=== PATIENT | female | born 1995 | race African-American/Black ===

== ENCOUNTER 2017-08-26 11:15 | Emergency (ER) | payer SELFPAY ==
[2017-08-26 11:30] VITALS: BP 103/65
--- NOTE | 2017-09-04 07:36 | UC ---
Leyla Anderson Nilda, scribed for Carol Aggarwal DO on 08/26/17 at 1333 . Hand/Wrist HPI - HPI Summary HPI Summary: This patient is a 21 year old F presenting to [facility] [place] accompanied by friend with a chief complaint of right index finger pain and swelling s/p getting a ring stuck on her finger last night. This morning pt woke up with swollen right index finger that turned purple. Pt states she normally puts the ring on her left index finger instead with no issues. The patient rates the pain 5/10 in severity. Symptoms aggravated and alleviated by nothing. Patient denies cough, SOB, abd pain, N/V/D, and trauma or injury to finger. - History Of Current Complaint Chief Complaint: UCGeneralIllness Stated Complaint: FINGER SWOLLEN WITH RING Time Seen by Provider: 08/26/17 12:14 Hx Obtained From: Patient Hx Last Menstrual Period: 2 WEEKS AGO Onset/Duration: Sudden Onset, Lasting Hours, Resolved Severity Currently: Mild Pain Intensity: 3 Pain Scale Used: 0-10 Numeric Aggravating Factor(s): Other - nothing Alleviating Factor(s): Nothing Associated Signs And Symptoms: Positive: Swelling, Other - purple; denies cough , SOB, abd pain, N/V/D, and trauma or injury to finger - Allergies/Home Medications Allergies/Adverse Reactions: Allergies Allergy/AdvReac Type Severity Reaction Status Date / Time No Known Allergies Allergy Verified 08/26/17 11:25 Home Medications: Home Medications Albuterol HFA INHALER* [Ventolin HFA Inhaler*] 2 inhaler INH QID PRN 08/26/17 [ History Confirmed 08/26/17] PMH/Surg Hx/FS Hx/Imm Hx Respiratory History: Asthma - Surgical History Surgical History: None - Family History Known Family History: Negative: Cardiac Disease, Hypertension, Diabetes - Social History Alcohol Use: None Substance Use Type: None Smoking Status (MU): Never Smoked Tobacco - Immunization History Most Recent Tetanus Shot: UTD, [employer] IC Review of Systems Respiratory: Other - negative cough, SOB Gastrointestinal: Other - negative abd pain, N/V/D Musculoskeletal: Other: - swollen, painful, purple right index finger due to ring stuck on finger; negative trauma or injury to finger All Other Systems Reviewed And Are Negative: Yes Physical Exam Triage Information Reviewed: Yes Appearance: Well-Appearing, No Pain Distress, Well-Nourished Vital Signs: Initial Vital Signs Temp 98.9 F 08/26/17 11:25 Pulse 73 08/26/17 11:25 Resp 16 08/26/17 11:25 BP 103/65 08/26/17 11:25 Pulse Ox 100 08/26/17 11:25 Vital Signs Reviewed: Yes Eyes: Positive: Conjunctiva Clear. Negative: Discharge ENT: Positive: Hearing grossly normal. Negative: Muffled voice, Hoarse voice Neck exam: Normal Neck: Positive: Supple Respiratory: Positive: Lungs clear, Normal breath sounds, No respiratory distress, No accessory muscle use Cardiovascular: Positive: RRR, No Murmur Abdomen Description: Positive: Nontender, Soft. Negative: Distended, Guarding Bowel Sounds: Positive: Present Musculoskeletal: Positive: Other: - Index finger of the right hand has mild swelling. The area over the proximal phalanx is still indented from where the ring was. Neurological: Positive: Alert, Muscle Tone Normal Psychological Exam: Normal Psychological: Positive: Age Appropriate Behavior Skin Exam: Normal Skin: Positive: Other - Warm, Dry, Normal color Hand/Wrist Course/Dx - Course Course Of Treatment: This patient is a 21 year old F presenting to [facility] [place] by friend with a chief complaint of right index finger pain and swelling s/p getting a ring stuck on her finger last night. This morning pt woke up with swollen right index finger that turned purple. Pt states she normally puts the ring on her left index finger instead with no issues. The patient rates the pain 5/10 in severity. Symptoms aggravated and alleviated by nothing. Patient denies cough, SOB, abd pain, N/V/D, and trauma or injury to finger. Nurse removed ring from finger. Pt was instructed to return if finger pain and swelling worsened or did not resolve within the next 1-2 days. Pt is stable and will be D/C with dx of soft tissue foreign body. The patient is agreeable with this plan. Medications reviewed. Allergies reviewed. - Differential Dx/Diagnosis Provider Diagnoses: soft tissue foreign body Discharge - Discharge Plan Condition: Stable Disposition: HOME Patient Education Materials: Soft Tissue Foreign Body (ED) Referrals: [facility] [place] [facility] [Outside] - 3 Days No Primary Care Phys,NOPCP [Primary Care Provider] - Additional Instructions: FOLLOW-UP CARE: You should establish with a private physician for follow-up care. If you are unable to get a timely appointment, or if you are worsening, call us or return for re-evaluation. An additional resource available to assist in finding the appropriate physician for your health care needs is the [facility]. You may contact them by calling [phone]. The documentation as recorded by the Leyla adame Nilda accurately reflects the service I personally performed and the decisions made by me, Carol Aggarwal DO.
== END 2017-08-26 12:26 | disposition home or self-care (01) ==
LOC: UCEAST 11:15
DX: S60.940A Unspecified superficial injury of right index finger, initial encounter (principal); X58.XXXA Exposure to other specified factors, initial encounter; Y93.9 Activity, unspecified; Y92.9 Unspecified place or not applicable; J45.909 Unspecified asthma, uncomplicated
CPT/HCPCS: 99202; G0463